=== PATIENT | female | born 1980 | race Hispanic/Latino ===

== ENCOUNTER 2022-08-24 09:30 | Emergency (ER) | payer OTHER ==
[2022-08-24] MEDS ORDERED: NS 1,000 ML IV ONE (10:10)
[2022-08-24] MEDS ORDERED: METOCLOPRAMIDE INJ 10MG/2ML VIAL (J2765 PER 1) IV ONE (10:10)
[2022-08-24] MEDS ORDERED: KETOROLAC 30 MG/ML 1ML VIAL IV ONE (10:10)
[2022-08-24] MEDS ORDERED: methylPREDNISolone 125MG 2ML VIAL IV ONE (10:10)
[2022-08-24 10:47] LABS: BASO % 0.3 % (0.0-1.0); EOS # 0.1 10^3/uL (0.0-0.5); EOS % 0.6 % (0.0-3.0); HEMATOCRIT 35.7 % (36.0-47.0); HEMOGLOBIN 11.6 g/dl (12.0-15.5); LYMPH # 1.5 10^3/uL (1.5-5.0); LYMPH % 17.1 % (24.0-44.0); MEAN CORPUSCULAR HEMOGLOBIN 28.6 pg (27.0-33.0); MEAN CORPUSCULAR HGB CONC 32.5 g/dl (32.0-36.5); MEAN CORPUSCULAR VOLUME 87.9 fl (80.0-96.0); MONO # 0.4 10^3/uL (0.0-0.8); MONO % 4.5 % (2.0-8.0); NEUTROPHILS # 6.7 10^3/uL (1.5-8.5); NEUTROPHILS % 77.3 % (36.0-66.0); PLATELET COUNT, AUTOMATED 338 10^3/uL (150-450); RED BLOOD COUNT 4.06 10^6/uL (4.00-5.40); WHITE BLOOD COUNT 8.6 10^3/uL (4.0-10.0)
[2022-08-24 11:05] LABS: HCG, SERUM QUALITATIVE NEGATIVE (NEGATIVE)
[2022-08-24 11:09] LABS: ERYTHROCYTE SEDIMENTATION RATE 50 mm/hr (0-20); INR 1.05; PROTHROMBIN TIME 13.9 SECONDS (12.5-14.5)
[2022-08-24 11:10] LABS: PARTIAL THROMBOPLASTIN TIME 25.9 SECONDS (24.8-34.2)
[2022-08-24 11:26] LABS: CK-MB VALUE MASS < 1.0 NG/ML (<3.6); CPK CREATINE PHOSPHOKINASE 163 U/L (34-145); FREE THYROXINE INDEX 3.6 % (1.3-4.8); MAGNESIUM LEVEL 1.7 MG/DL (1.8-2.4); MB/CK RELATIVE INDEX 0.61 (< OR =4); T UPTAKE 37.4 % (22.5-37.0); THYROID STIMULATING HORMONE 0.913 uIU/ML (0.55-4.78); THYROXINE (T4) 9.5 UG/DL (4.5-10.9)
[2022-08-24 12:30] VITALS: BP 114/72
[2022-08-24] MEDS ORDERED: PRED20TA PO (12:34)
[2022-08-24] MEDS ORDERED: HYDR-3363 PO (12:34)
== END 2022-08-24 12:59 | disposition home or self-care (01) ==
LOC: M ED 09:30
DX: R20.2 Paresthesia of skin (principal); R51.9 Headache, unspecified; R22.0 Localized swelling, mass and lump, head; I45.10 Unspecified right bundle-branch block; Z88.1 Allergy status to other antibiotic agents
CPT/HCPCS: 70450; 71045; 80047; 82550; 82553; 83735; 84436; 84443; 84479; 84484; 84703; 85025; 85610; 85652; 85730; 93005; 93041; 94760; 96361; 96374; 96375; 99285; J1885; J2765; J2930

== ENCOUNTER → 2023-03-15 | Outpatient (REF) | payer OTHER ==
[~2023-03-15] MED LIST: HYDR-3363 PO; PRED20TA PO
[2023-03-15 17:22] LABS: BASO % 0.4 % (0.0-1.0); EOS # 0.1 10^3/uL (0.0-0.5); EOS % 0.9 % (0.0-3.0); HEMATOCRIT 39.2 % (36.0-47.0); HEMOGLOBIN 12.5 g/dl (12.0-15.5); LYMPH # 1.8 10^3/uL (1.5-5.0); LYMPH % 24.3 % (24.0-44.0); MEAN CORPUSCULAR HEMOGLOBIN 28.3 pg (27.0-33.0); MEAN CORPUSCULAR HGB CONC 31.9 g/dl (32.0-36.5); MEAN CORPUSCULAR VOLUME 88.7 fl (80.0-96.0); MONO # 0.4 10^3/uL (0.0-0.8); MONO % 5.6 % (2.0-8.0); NEUTROPHILS # 5.2 10^3/uL (1.5-8.5); NEUTROPHILS % 68.4 % (36.0-66.0); PLATELET COUNT, AUTOMATED 387 10^3/uL (150-450); RED BLOOD COUNT 4.42 10^6/uL (4.00-5.40); WHITE BLOOD COUNT 7.5 10^3/uL (4.0-10.0)
[2023-03-15 18:00] LABS: CREATININE,RANDOM URINE 31.9 MG/DL
[2023-03-15 18:01] LABS: TOTAL PROTEIN,RANDOM URINE < 6.0 MG/DL (0.0-14.0)
[2023-03-15 18:02] LABS: ERYTHROCYTE SEDIMENTATION RATE 64 mm/hr (0-20)
[2023-03-15 18:10] LABS: CPK CREATINE PHOSPHOKINASE 77 U/L (34-145); LDH LACTATE DEHYDROGENASE 182 U/L (120-246)
[2023-03-15 18:11] LABS: ALBUMIN 3.7 G/DL (3.2-5.2); ALKALINE PHOSPHATASE 84 U/L (46-116); ALT/SGPT 12 U/L (7.0-40); AST/SGOT < 8 U/L (<34); BILIRUBIN,TOTAL 0.3 MG/DL (0.3-1.2); BLOOD UREA NITROGEN 9 MG/DL (9-23); CALCIUM LEVEL 8.7 MG/DL (8.5-10.1); CARBON DIOXIDE LEVEL 26 MMOL/L (20-31); CHLORIDE LEVEL 106 MMOL/L (98-107); CREATININE FOR GFR 0.69 MG/DL (0.55-1.30); GLOMERULAR FILTRATION RATE > 60.0 (>58); GLUCOSE, FASTING 81 MG/DL (60-100); POTASSIUM SERUM 4.2 MMOL/L (3.5-5.1); SODIUM LEVEL 138 MMOL/L (136-145)
[2023-03-15 18:16] LABS: COMPLEMENT C3 139.9 MG/DL (90.0-170.0); COMPLEMENT C4 32.2 MG/DL (12-36)
[2023-03-15 18:21] LABS: APPEARANCE, URINE CLEAR (CLEAR); BACTERIA, URINE AUTO NEGATIVE (NEGATIVE); BILIRUBIN, URINE AUTO NEGATIVE (NEGATIVE); BLOOD, URINE BLOOD 1+ (NEGATIVE); COLOR, URINE STRAW (YELLOW); GLUCOSE, URINE (UA) AUTO NEGATIVE (NEGATIVE); KETONE, URINE AUTO NEGATIVE (NEGATIVE); LEUKOCYTE ESTERASE, URINE AUTO NEGATIVE (NEGATIVE); NITRITE, URINE AUTO NEGATIVE (NEGATIVE); PROTEIN, URINE AUTO NEGATIVE (NEGATIVE); RBC, URINE AUTO 0 /HPF (0-3); SPECIFIC GRAVITY URINE AUTO 1.004 (1.002-1.035); SQUAMOUS EPITHELIAL CELL UR AU 2 /HPF (0-6); UROBILINOGEN, URINE AUTO 0.2 mg/dL (0.0-2.0); WBC, URINE AUTO 1 /HPF (0-3)
[2023-03-17 15:08] LABS: ALDOLASE 3.6 U/L (3.3-10.3); COMPLEMENT TOTAL (CH50) > 60 U/mL (>41)
== END ==
LOC: M SFHCRHEU 13:10
PROVIDERS: ATTEND Internal Medicine Rheumatology
DX: R76.8 Other specified abnormal immunological findings in serum (principal); M35.3 Polymyalgia rheumatica; H53.9 Unspecified visual disturbance; L50.9 Urticaria, unspecified; R20.0 Anesthesia of skin; R20.2 Paresthesia of skin
CPT/HCPCS: 36415; 80053; 81001; 82085; 82550; 82570; 83615; 84156; 85025; 85652; 86140; 86160; 86162; G0463

== ENCOUNTER → 2023-05-21 | Outpatient (CLI) | payer OTHER | LOC: M PLAIMG 12:31 | PROVIDERS: ATTEND Internal Medicine Rheumatology | DX: R76.9 Abnormal immunological finding in serum, unspecified (principal); M35.3 Polymyalgia rheumatica; H53.9 Unspecified visual disturbance; L50.9 Urticaria, unspecified; R20.0 Anesthesia of skin; R20.2 Paresthesia of skin; R70.0 Elevated erythrocyte sedimentation rate ==

== ENCOUNTER → 2024-07-12 | Outpatient (REF) | payer OTHER | LOC: M LAB REF 15:04 | PROVIDERS: ATTEND Internal Medicine Gastroenterology | DX: Z12.11 Encounter for screening for malignant neoplasm of colon (principal) ==

== ENCOUNTER → 2024-07-28 | Outpatient (CLI) | payer OTHER | LOC: M SOG 07:53 | PROVIDERS: ATTEND Orthopaedic Surgery | DX: M25.522 Pain in left elbow (principal) ==

== ENCOUNTER 2024-08-30 12:13 | Day surgery (SDC) | payer OTHER ==
[~2024-08-30] VITALS: Ht 165.1 cm; Wt 102.1 kg
[~2024-08-30 12:13] MED LIST changes: +ACET-897 PO; +ACET-907 PO; +DULO1CAP4 PO; +GABA-1490 PO; +GNPTAB37 PO; +IBUP200C25 PO; +INUL2TAB PO; +K2 P1TAB PO; +LOPE1CAP5 PO; +LORA-930 PO; +MAG100TA PO; +MELA10CA6 PO; +NAPR-885 PO; +PROBCAP14 PO; +VITA100T14 PO
[2024-08-30] MEDS ORDERED: LIDOCAINE 2% 100MG/5ML SDV (FOR ANES.) As Ordered ONE (13:29)
[2024-08-30] MEDS ORDERED: propofoL 200 MG/20 ML VIAL As Ordered ONE (13:29)
[2024-08-30 13:40] VITALS: TEMP 97.6
[2024-08-30 14:04] VITALS: BP 132/83; O2SAT 98
== END 2024-08-30 14:11 | disposition home or self-care (01) ==
LOC: M OPP 12:13
PROVIDERS: ATTEND Internal Medicine Gastroenterology
DX: Z12.11 Encounter for screening for malignant neoplasm of colon (principal); Z12.12 Encounter for screening for malignant neoplasm of rectum; K52.9 Noninfective gastroenteritis and colitis, unspecified; K64.0 First degree hemorrhoids; M79.9 Soft tissue disorder, unspecified; Z79.899 Other long term (current) drug therapy; Z88.0 Allergy status to penicillin; Z88.8 Allergy status to other drugs, medicaments and biological substances; G43.909 Migraine, unspecified, not intractable, without status migrainosus

== ENCOUNTER → 2024-09-11 | Outpatient (CLI) | payer OTHER | LOC: M PLAIMG 13:19 | PROVIDERS: ATTEND Orthopaedic Surgery | DX: G56.22 Lesion of ulnar nerve, left upper limb (principal); M25.522 Pain in left elbow ==